=== PATIENT | female | born 1955 | race Native Hawaiian/Other Pacific Islander ===

== ENCOUNTER 2017-09-15 13:21 | Emergency (ER) | payer MEDICAID ==
[2017-09-15 14:45] LABS: Basophils % (Auto) 0.5 % (0.0-1.8); Eosinophils # (Auto) 0.1 K/mm3 (0.0-0.4); Eosinophils % (Auto) 1.2 % (0.0-4.3); Hemoglobin 14.9 gm/dl (10.1-14.3); Lymphocytes # (Auto) 1.6 K/mm3 (1.2-5.4); Lymphocytes % (Auto) 31.8 % (13.4-35.0); Mean Corpuscular HGB Conc 34 % (30-34); Mean Corpuscular Hemoglobin 30 pg (28-32); Mean Corpuscular Volume 88 fl (79-97); Monocytes # (Auto) 0.8 K/mm3 (0.0-0.8); Monocytes % (Auto) 15.6 % (0.0-7.3); Platelet Count 187 K/mm3 (140-440); Red Blood Count 5.02 M/mm3 (3.65-5.03); Red Cell Distribution Width 14.1 % (13.2-15.2)
[2017-09-15 14:59] LABS: Alanine Aminotransferase 125 units/L (7-56); Albumin 4.1 g/dL (3.9-5); BUN/Creatinine Ratio 11; Blood Urea Nitrogen 10 mg/dL (7-17); Calcium 8.9 mg/dL (8.4-10.2); Hemolysis Index 5
[2017-09-15] MEDS ORDERED: NORCO 5/325 PO ONE (16:08)
[2017-09-15] MEDS ORDERED: ZOFRAN ODT PO ONE (16:08)
--- NOTE | 2017-09-15 16:10 | Emergency Department Report ---
ED Abdominal Pain HPI - General Chief Complaint: Abdominal Pain Stated Complaint: LEFT SIDE ABD PAIN Time Seen by Provider: 09/15/17 15:54 Source: patient Mode of arrival: Ambulatory Limitations: No Limitations - History of Present Illness Initial Comments: Ms. Garcia is a pleasant healthy 62-year-old female with history of hypertension. She's had fever left-sided abdominal pain since Thursday for the past 3 days. She has decreased appetite. No dysuria normal bowel movement. No hematochezia. She has body aches. Left lower quadrant pain is described as crampy without radiation. Intermittent. After bowel movement she feels worsening pain. Patient states she felt like she has the flu. - Related Data Previous Rx's Medication Instructions Recorded Last Taken Type Amoxicillin/K Clav Tab [Augmentin 1 tab PO Q12HR #14 tab 11/07/15 Unknown Rx 875 mg] Fluticasone [Flonase] 1 spray NS QDAY #1 bottle 11/07/15 Unknown Rx Ibuprofen [Motrin 800 MG tab] 800 mg PO Q8HR PRN #30 tablet 11/07/15 Unknown Rx guaiFENesin/CODEINE [Robitussin AC] 5 ml PO Q6HR PRN #120 oral.liqd 11/07/15 Unknown Rx Allergies Allergy/AdvReac Type Severity Reaction Status Date / Time No Known Allergies Allergy Verified 11/07/15 14:36 ED Review of Systems ROS: Stated complaint: LEFT SIDE ABD PAIN Other details as noted in HPI Comment: All other systems reviewed and negative Constitutional: chills, fever, malaise ENT: denies: ear pain, throat pain Respiratory: denies: cough Cardiovascular: denies: chest pain Gastrointestinal: abdominal pain. denies: nausea, vomiting, hematemesis ED Past Medical Hx - Past Medical History Hx Hypertension: Yes - Surgical History Additional Surgical History: breast reduction, c-sect, left foot - Social History Smoking Status: Never Smoker Substance Use Type: None - Medications Home Medications: Home Medications Medication Instructions Recorded Confirmed Last Taken Type Amoxicillin/K Clav Tab [Augmentin 1 tab PO Q12HR #14 tab 11/07/15 Unknown Rx 875 mg] Fluticasone [Flonase] 1 spray NS QDAY #1 bottle 11/07/15 Unknown Rx Ibuprofen [Motrin 800 MG tab] 800 mg PO Q8HR PRN #30 tablet 11/07/15 Unknown Rx guaiFENesin/CODEINE [Robitussin AC] 5 ml PO Q6HR PRN #120 oral.liqd 11/07/15 Unknown Rx ED Physical Exam - General Limitations: No Limitations General appearance: alert, in no apparent distress - Head Head exam: Present: atraumatic, normocephalic - Eye Eye exam: Present: normal appearance - ENT ENT exam: Present: mucous membranes moist - Neck Neck exam: Present: normal inspection - Respiratory Respiratory exam: Present: normal lung sounds bilaterally. Absent: respiratory distress, wheezes, rales, rhonchi - Cardiovascular Cardiovascular Exam: Present: regular rate, normal rhythm, normal heart sounds. Absent: systolic murmur, diastolic murmur, rubs, gallop - GI/Abdominal GI/Abdominal exam: Present: soft, normal bowel sounds. Absent: distended, tenderness, guarding, rebound - Extremities Exam Extremities exam: Present: normal inspection - Back Exam Back exam: Present: normal inspection - Neurological Exam Neurological exam: Present: alert, oriented X3 - Psychiatric Psychiatric exam: Present: normal affect, normal mood - Skin Skin exam: Present: warm, dry, intact, normal color. Absent: rash ED Course Vital Signs 09/15/17 14:12 Temperature 98.5 F Pulse Rate 89 Respiratory 16 Rate Blood Pressure 117/76 O2 Sat by Pulse 98 Oximetry ED Medical Decision Making - Lab Data Result diagrams: 09/15/17 14:24 09/15/17 14:24 Laboratory Results - last 24 hr 09/15/17 09/15/17 09/15/17 14:24 14:24 Unknown WBC 4.9 RBC 5.02 Hgb 14.9 H Hct 44.0 H MCV 88 MCH 30 MCHC 34 RDW 14.1 Plt Count 187 Lymph % (Auto) 31.8 [place] % (Auto) 15.6 H Eos % (Auto) 1.2 Baso % (Auto) 0.5 Lymph # 1.6 [place] # 0.8 Eos # 0.1 Baso # 0.0 Seg Neutrophils % 50.9 Seg Neutrophils # 2.5 Sodium 136 L Potassium 4.3 Chloride 100.2 Carbon Dioxide 24 Anion Gap 16 BUN 10 Creatinine 0.9 Estimated GFR > 60 BUN/Creatinine Ratio 11 Glucose 100 Calcium 8.9 Total Bilirubin 0.30 AST 68 H ALT 125 H Alkaline Phosphatase 155 H Total Protein 7.3 Albumin 4.1 Albumin/Globulin Ratio 1.3 Urine Color [place] Urine Turbidity Clear Urine pH 5.0 Ur Specific [place] 1.028 Urine Protein 30 mg/dl Urine Glucose (UA) Neg Urine Ketones Tr Urine Blood Neg Urine Nitrite Neg Urine Bilirubin Neg Urine Urobilinogen < 2.0 Ur Leukocyte Esterase Neg Urine WBC (Auto) 1.0 Urine RBC (Auto) 3.0 U Epithel Cells (Auto) < 1.0 Urine Mucus 3+ - Medical Decision Making Ms. Garcia has left side pain and flu like symptoms. Clinical diagnosis: influenza given reassurance Son notified of elevated liver enzymes. He understands need for followup. Critical care attestation.: If time is entered above; I have spent that time in minutes in the direct care of this critically ill patient, excluding procedure time. ED Disposition Clinical Impression: Influenza, Elevated liver enzymes Disposition: - TO HOME OR SELFCARE Is pt being admited?: No Does the pt Need Aspirin: No Condition: Stable Instructions: Abdominal Pain (ED), Influenza (ED) Additional Instructions: Your liver numbers are elevated. Please see your doctor for further tests. Referrals: LORENZO MEDINA MD [Staff Physician] - 3-5 Days Time of Disposition: 18:29 Print Language: OMANI
[2017-09-15 16:15] LABS: Bilirubin,Urine NEG (Negative); Blood,Urine NEG (Negative); Color,Urine Amber (Yellow); Mucus,Urine 3+ /HPF; Urobilinogen,Urine < 2.0 mg/dL (<2.0)
--- NOTE | 2017-09-15 18:02 | Cat Scan Report ---
FINAL REPORT EXAM: CT ABDOMEN PELVIS WO CON HISTORY: LLQ pain fever TECHNIQUE: Standard unenhanced CT of the abdomen and pelvis. Coronal and sagittal reconstruction was also performed. PRIORS: None. FINDINGS: Within the abdomen, the liver, spleen, pancreas, gallbladder, adrenal glands, and right kidney are unremarkable. There 2 tiny adjacent nonobstructing calculi in the upper pole left kidney measuring 1 mm and 3 mm, respectively. No evidence for hydronephrosis or ureteral calculi bilaterally is seen. No evidence for retroperitoneal or pelvic lymphadenopathy is seen. The bowel loops have normal caliber. No soft tissue mass, fluid collection, inflammatory change, or free air is seen within the abdomen or pelvis. The appendix is normal. There is subtle haziness surrounding the small subcentimeter normal sized lymph nodes within the mesentery (axial images 85-93). Findings may be consistent with a mild reactive mesenteritis to the left of midline. Within the pelvis, the bladder is unremarkable. The uterus is normal. No evidence for mass or lymphadenopathy is seen in the pelvis. Images through the upper abdomen include the lung bases which are expanded and clear. Bony structures show no focal abnormalities and are intact. IMPRESSION: 1. Subtle haziness surrounding normal sized lymph nodes in the mesentery. Findings are nonspecific but can be seen with a mild reactive mesenteritis. 2. Nonobstructing calculi in the upper pole left kidney.
[2017-09-15 18:49] VITALS: BP 118/74
[2017-09-15] MEDS ORDERED: NACL 0.9% 1000 ML 2,000 ML ONE (21:41)
[2017-09-15] MEDS ORDERED: NACL 0.9% 1000 ML 1,000 ML ONE (22:15)
== END 2017-09-15 18:39 | disposition home or self-care (01) ==
LOC: ED 13:21
DX: R74.8 Abnormal levels of other serum enzymes (principal); R10.32 Left lower quadrant pain; J11.1 Influenza due to unidentified influenza virus with other respiratory manifestations; I10 Essential (primary) hypertension
CPT/HCPCS: 36415; 74176; 80053; 81001; 85025; 99284; J7030; Q0162

== ENCOUNTER 2018-02-13 16:03 | Emergency (ER) | payer MEDICAID ==
[2018-02-13 16:19] VITALS: BP 124/79
--- NOTE | 2018-02-13 16:51 | Emergency Department Report ---
ED Dizziness HPI - General Chief Complaint: Dizziness Stated Complaint: DIZZINESS Time Seen by Provider: 02/13/18 16:43 Source: patient, family, EMS Mode of arrival: Stretcher Limitations: No Limitations, Language Barrier - History of Present Illness Initial Comments: 62-year-old woman came dizzy and lightheaded while walking upstairs briefly shortly prior to arrival, experiencing significant lightheadedness, with darkening of vision. She made her way down the stairs, sat on the sofa, did not feel that she passed out completely, but remained weak for several minutes. She did not fall, did not pass out, she had no focal neurologic symptoms, but family contacted EMS for her symptoms. Patient was improving steadily after that, and since then all symptoms have essentially resolved, however family is concerned about the episode, as she is not experiencing such before. She has no prior history of previous episodes, she has no known cardiac history , has not been ill recently, no nausea or vomiting, and has been hydrating normally. She has not been significantly exertional. - Related Data Previous Rx's Medication Instructions Recorded Last Taken Type Amoxicillin/K Clav Tab [Augmentin 1 tab PO Q12HR #14 tab 11/07/15 Unknown Rx 875 mg] Fluticasone [Flonase] 1 spray NS QDAY #1 bottle 11/07/15 Unknown Rx Ibuprofen [Motrin 800 MG tab] 800 mg PO Q8HR PRN #30 tablet 11/07/15 Unknown Rx guaiFENesin/CODEINE [Robitussin AC] 5 ml PO Q6HR PRN #120 oral.liqd 11/07/15 Unknown Rx Allergies Allergy/AdvReac Type Severity Reaction Status Date / Time No Known Allergies Allergy Verified 11/07/15 14:36 ED Review of Systems ROS: Stated complaint: DIZZINESS Other details as noted in HPI Comment: All other systems reviewed and negative Constitutional: no symptoms reported ENT: denies: ear pain, throat pain Respiratory: denies: cough, shortness of breath, wheezing Cardiovascular: denies: chest pain, palpitations Endocrine: no symptoms reported Gastrointestinal: denies: abdominal pain, nausea, diarrhea Musculoskeletal: denies: back pain, joint swelling, arthralgia Skin: denies: rash, lesions Neurological: as per HPI. denies: headache Psychiatric: denies: anxiety, depression ED Past Medical Hx - Past Medical History Hx Hypertension: Yes - Surgical History Additional Surgical History: breast reduction, c-sect, left foot - Social History Smoking Status: Never Smoker Substance Use Type: None - Medications Home Medications: Home Medications Medication Instructions Recorded Confirmed Last Taken Type Amoxicillin/K Clav Tab [Augmentin 1 tab PO Q12HR #14 tab 11/07/15 Unknown Rx 875 mg] Fluticasone [Flonase] 1 spray NS QDAY #1 bottle 11/07/15 Unknown Rx Ibuprofen [Motrin 800 MG tab] 800 mg PO Q8HR PRN #30 tablet 11/07/15 Unknown Rx guaiFENesin/CODEINE [Robitussin AC] 5 ml PO Q6HR PRN #120 oral.liqd 11/07/15 Unknown Rx ED Physical Exam - General Limitations: No Limitations, Language Barrier General appearance: alert, in no apparent distress - Head Head exam: Present: atraumatic, normocephalic - Eye Eye exam: Present: PERRL - ENT ENT exam: Present: normal exam, mucous membranes moist - Neck Neck exam: Present: normal inspection, full ROM. Absent: tenderness - Respiratory Respiratory exam: Present: normal lung sounds bilaterally. Absent: respiratory distress, wheezes, rales, rhonchi, chest wall tenderness - Cardiovascular Cardiovascular Exam: Present: regular rate, normal rhythm, normal heart sounds. Absent: systolic murmur, diastolic murmur, rubs, gallop - GI/Abdominal GI/Abdominal exam: Present: soft, normal bowel sounds. Absent: tenderness, guarding, rebound - Rectal Rectal exam: Present: deferred - Extremities Exam Extremities exam: Present: normal inspection - Back Exam Back exam: Present: normal inspection - Neurological Exam Neurological exam: Present: alert, oriented X3, CN II-XII intact. Absent: motor sensory deficit - Psychiatric Psychiatric exam: Present: normal affect, normal mood - Skin Skin exam: Present: warm, dry, intact, normal color. Absent: rash ED Course Vital Signs 02/13/18 16:11 Temperature 36.7 C Pulse Rate 86 Blood Pressure 124/79 O2 Sat by Pulse 98 Oximetry - Reevaluation(s) Reevaluation #1: 02/13/18 18:30 Patient is stable on recheck, asymptomatic, check for signs of orthostasis, and on sitting up, remained stable, has only transient lightheadedness lasting less than 10 seconds, and repeat blood pressure is 133/94, heart rate unchanged. ED Medical Decision Making - Lab Data Result diagrams: 02/13/18 16:48 02/13/18 16:48 - EKG Data -: EKG Interpreted by Me (normal EKG, normal sinus rhythm,) EKG shows normal: sinus rhythm (85 bpm), intervals (QT interval normal at 447 ms ), QRS complexes (normal QRS complex, normal axis at 72), ST-T waves Rate: normal - EKG Data When compared to previous EKG there are: previous EKG unavailable - Medical Decision Making Patient has typical findings of a vasovagal reaction, with no abnormalities on cardiac monitoring, normal EKG, normal electrolytes without signs of electrolyte abnormality or anemia. Family reassured, recommended to rest over the next day or so, drink plenty of fluids, but if there are multiple recurrences, to return for recheck. - Differential Diagnosis vasovagal reaction, dehydration, anemia, cardiac syncope Critical care attestation.: If time is entered above; I have spent that time in minutes in the direct care of this critically ill patient, excluding procedure time. ED Disposition Clinical Impression: Vasovagal reaction Disposition: - TO HOME OR SELFCARE Is pt being admited?: No Does the pt Need Aspirin: No Condition: Stable Instructions: Syncope (ED) Additional Instructions: Evaluation today is stable, with no abnormality seen on electrocardiogram, heart monitoring, blood pressure is stable, and laboratory blood work is also normal. Rest at home, symptoms should resolve and did not recur. Drink plenty of fluids, and avoid exertion over the next day or so. If you have of other episode, lay down flat, rest, as most symptoms should resolve within a few minutes. Symptoms do not resolve within a few minutes, or if you have multiple recurrent episodes, return to the emergency department for further evaluation. Referrals: PRIMARY CARE, [Primary Care Provider] - 3-5 Days Time of Disposition: 18:34
[2018-02-13 17:02] LABS: Basophils % (Auto) 0.6 % (0.0-1.8); Eosinophils # (Auto) 0.1 K/mm3 (0.0-0.4); Eosinophils % (Auto) 1.3 % (0.0-4.3); Hematocrit 41.7 % (30.3-42.9); Lymphocytes # (Auto) 1.2 K/mm3 (1.2-5.4); Lymphocytes % (Auto) 20.6 % (13.4-35.0); Mean Corpuscular HGB Conc 34 % (30-34); Mean Corpuscular Hemoglobin 30 pg (28-32); Mean Corpuscular Volume 89 fl (79-97); Monocytes # (Auto) 0.4 K/mm3 (0.0-0.8); Monocytes % (Auto) 6.9 % (0.0-7.3); Platelet Count 215 K/mm3 (140-440); Red Blood Count 4.67 M/mm3 (3.65-5.03); Red Cell Distribution Width 13.7 % (13.2-15.2)
[2018-02-13 17:17] LABS: BUN/Creatinine Ratio 16; Blood Urea Nitrogen 14 mg/dL (7-17); Calcium 9.3 mg/dL (8.4-10.2); Hemolysis Index 11
== END 2018-02-13 19:40 | disposition home or self-care (01) ==
LOC: ED 16:03
DX: R55 Syncope and collapse (principal); I10 Essential (primary) hypertension
CPT/HCPCS: 36415; 80048; 85025; 93005; 93010; 99283

== ENCOUNTER 2019-08-16 03:14 | Emergency (ER) | payer MEDICAID ==
[2019-08-16] MEDS ORDERED: TETANUS,DIPH,PERTUSS(ACELL) VACCINE 0.5 ML SYRINGE IM ONE (03:34)
[2019-08-16 04:07] LABS: Basophils % (Auto) 0.7 % (0.0-1.8); Eosinophils # (Auto) 0.1 K/mm3 (0.0-0.4); Eosinophils % (Auto) 1.8 % (0.0-4.3); Hematocrit 41.5 % (30.3-42.9); Hemoglobin 13.9 gm/dl (10.1-14.3); Lymphocytes # (Auto) 2.5 K/mm3 (1.2-5.4); Lymphocytes % (Auto) 39.3 % (13.4-35.0); Mean Corpuscular HGB Conc 34 % (30-34); Mean Corpuscular Volume 89 fl (79-97); Monocytes # (Auto) 0.5 K/mm3 (0.0-0.8); Monocytes % (Auto) 7.8 % (0.0-7.3); Platelet Count 248 K/mm3 (140-440); Red Blood Count 4.67 M/mm3 (3.65-5.03)
[2019-08-16 04:15] LABS: Bilirubin,Urine NEG (Negative); Blood,Urine NEG (Negative); Color,Urine Colorless (Yellow); Protein,Urine <15 mg/dL mg/dL (Negative); Urobilinogen,Urine < 2.0 mg/dL (<2.0)
[2019-08-16 04:29] LABS: Alanine Aminotransferase 40 units/L (7-56); Albumin 4.5 g/dL (3.9-5); BUN/Creatinine Ratio 13; Blood Urea Nitrogen 10 mg/dL (7-17); Calcium 9.7 mg/dL (8.4-10.2); Hemolysis Index 10
[2019-08-16] MEDS ORDERED: SODIUM CHLORIDE 0.9% 1000 ML 1,000 ML IV ONE (04:47)
[2019-08-16] MEDS ORDERED: ONDANSETRON 4 MG/2 ML INJ IV ONE (04:47)
--- NOTE | 2019-08-16 05:51 | Cat Scan Report ---
CT ABDOMEN AND PELVIS WITH IV CONTRAST INDICATION: abd pain. COMPARISON: CT 09/15/2017 TECHNIQUE: All CT scans at this facility use dose modulation, automated exposure control, iterative reconstructi on or weight based dosing, when appropriate, to reduce radiation dose to as low as reasonably achieva ble. FINDINGS: Lung Bases: No significant abnormality. Skeletal System: No acute abnormality. ABDOMEN: Liver: No significant abnormality. Gallbladder: No significant abnormality. Bile Ducts: No significant abnormality. Pancreas: No significant abnormality. Spleen: No significant abnormality. Adrenals: No significant abnormality. Right Kidney: No significant abnormality. Left Kidney: Minimal nephrolithiasis. No hydronephrosis. Upper GI tract: No significant abnormality. Lymph Nodes: No significant adenopathy. Aorta: No significant abnormality. Additional Findings: Shotty mesenteric nodes are stable. PELVIS: Colon: No acute abnormality. Diverticulosis is noted. Urinary Bladder and Distal Ureters: No significant abnormality. Appendix: No significant abnormality. Lymph Nodes: No significant adenopathy. Additional Findings: None. IMPRESSION: 1. No acute process in the abdomen or pelvis. 2. Incidental findings, as above. Signer Name: Javy Villanueva MD Signed: 08/16/2019 5:47 AM Workstation Name: [id number]
--- NOTE | 2019-08-16 05:53 | Emergency Department Report ---
ED Abdominal Pain HPI - General Chief Complaint: Abdominal Pain Stated Complaint: THROAT PAIN BLURRED VISION Time Seen by Provider: 08/16/19 04:45 Source: patient, family Mode of arrival: Ambulatory Limitations: No Limitations - History of Present Illness Initial Comments: Ms. Garcia is a 62-year-old female with history of hypertension, GERD, and tummy tuck procedure. She's had abdominal pain and esophageal burning and indigestion for the past 3 days. She states nausea no vomiting and decreased appetite. There is no dysuria ,but frequent constipaiton. No hematochezia. Pain is 5/10 cramping, radiating to left lower quadrant. pain is described as crampy without radiation occurrance is Intermittent. pain is improved with MD KIRTI Complaint: abdominal pain, other (constipation) Onset/Timin -: days(s) Location: LLQ, RLQ Radiation: LLQ, RLQ Migration to: LLQ Severity: moderate Severity scale (0 -10): 5 Quality: cramping Consistency: intermittent Improves With: bowel movement Worsens With: movement Associated Symptoms: nausea, constipation. denies: vomiting, diarrhea, fever, chills, dysuria, hematemesis, hematochezia, melena - Related Data Previous Rx's Medication Instructions Recorded Last Taken Type Amoxicillin/K Clav Tab [Augmentin 1 tab PO Q12HR #14 tab 11/07/15 Unknown Rx 875 mg] Fluticasone [Flonase] 1 spray NS QDAY #1 bottle 11/07/15 Unknown Rx Ibuprofen [Motrin 800 MG tab] 800 mg PO Q8HR PRN #30 tablet 11/07/15 Unknown Rx guaiFENesin/CODEINE [Robitussin AC] 5 ml PO Q6HR PRN #120 oral.liqd 11/07/15 Unknown Rx Famotidine [Pepcid] 20 mg PO BID #30 tablet 08/16/19 Unknown Rx Naproxen 500 mg PO BID PRN #30 tablet 08/16/19 Unknown Rx cephALEXin [Keflex] 500 mg PO BID 3 Days #6 cap 08/16/19 Unknown Rx Allergies Allergy/AdvReac Type Severity Reaction Status Date / Time No Known Allergies Allergy Verified 11/07/15 14:36 ED Review of Systems ROS: Stated complaint: THROAT PAIN BLURRED VISION Other details as noted in HPI Constitutional: denies: chills, fever Eyes: as per HPI ENT: denies: ear pain, throat pain Respiratory: denies: cough, shortness of breath, wheezing Cardiovascular: denies: chest pain, palpitations Endocrine: no symptoms reported Gastrointestinal: abdominal pain, nausea, constipation. denies: vomiting, diarrhea, melena Genitourinary: denies: urgency, dysuria, frequency, hematuria, discharge Musculoskeletal: denies: back pain, joint swelling, arthralgia Skin: denies: rash, lesions Neurological: denies: headache, weakness, paresthesias Psychiatric: denies: anxiety, depression Hematological/Lymphatic: denies: easy bleeding, easy bruising ED Past Medical Hx - Past Medical History Previous Medical History?: Yes Hx Hypertension: Yes - Surgical History Past Surgical History?: Yes Hx Breast Surgery: Yes (r) Additional Surgical History: breast reduction, c-sect, left foot - Social History Smoking Status: Never Smoker Substance Use Type: None - Medications Home Medications: Home Medications Medication Instructions Recorded Confirmed Last Taken Type Amoxicillin/K Clav Tab [Augmentin 1 tab PO Q12HR #14 tab 11/07/15 Unknown Rx 875 mg] Fluticasone [Flonase] 1 spray NS QDAY #1 bottle 11/07/15 Unknown Rx Ibuprofen [Motrin 800 MG tab] 800 mg PO Q8HR PRN #30 tablet 11/07/15 Unknown Rx guaiFENesin/CODEINE [Robitussin AC] 5 ml PO Q6HR PRN #120 oral.liqd 11/07/15 Unknown Rx Famotidine [Pepcid] 20 mg PO BID #30 tablet 08/16/19 Unknown Rx Naproxen 500 mg PO BID PRN #30 tablet 08/16/19 Unknown Rx cephALEXin [Keflex] 500 mg PO BID 3 Days #6 cap 08/16/19 Unknown Rx ED Physical Exam - General Limitations: No Limitations General appearance: alert, in no apparent distress - Head Head exam: Present: atraumatic, normocephalic - Eye Eye exam: Present: normal appearance, PERRL, EOMI Pupils: Present: normal accommodation - ENT ENT exam: Present: mucous membranes moist - Neck Neck exam: Present: normal inspection - Respiratory Respiratory exam: Present: normal lung sounds bilaterally. Absent: respiratory distress, wheezes, stridor, chest wall tenderness - Cardiovascular Cardiovascular Exam: Present: regular rate, normal rhythm, normal heart sounds. Absent: systolic murmur, diastolic murmur, rubs, gallop - GI/Abdominal GI/Abdominal exam: Present: normal bowel sounds. Absent: distended, tenderness (bilat lower Quads), guarding, rebound, rigid, bruit, hernia - Rectal Rectal exam: Present: deferred - Extremities Exam Extremities exam: Present: normal inspection, full ROM, normal capillary refill. Absent: tenderness, pedal edema - Back Exam Back exam: Present: normal inspection, full ROM. Absent: tenderness, CVA tenderness (R), CVA tenderness (L) - Neurological Exam Neurological exam: Present: alert, oriented X3, CN II-XII intact, normal gait - Psychiatric Psychiatric exam: Present: normal affect, normal mood - Skin Skin exam: Present: warm, dry, intact, normal color. Absent: rash ED Course Vital Signs 08/16/19 03:18 Temperature 98.2 F Pulse Rate 87 Respiratory 18 Rate Blood Pressure 152/85 O2 Sat by Pulse 98 Oximetry ED Medical Decision Making - Lab Data Result diagrams: 08/16/19 03:53 08/16/19 03:53 Labs 08/16/19 08/16/19 08/16/19 03:47 03:53 03:53 WBC 6.3 RBC 4.67 Hgb 13.9 Hct 41.5 MCV 89 MCH 30 MCHC 34 RDW 13.0 L Plt Count 248 Lymph % (Auto) 39.3 H [place] % (Auto) 7.8 H Eos % (Auto) 1.8 Baso % (Auto) 0.7 Lymph # 2.5 [place] # 0.5 Eos # 0.1 Baso # 0.0 Seg Neutrophils % 50.4 Seg Neutrophils # 3.2 Sodium 144 Potassium 4.3 Chloride 106.0 Carbon Dioxide 23 Anion Gap 19 BUN 10 Creatinine 0.8 Estimated GFR > 60 BUN/Creatinine Ratio 13 Glucose 108 H Calcium 9.7 Total Bilirubin 0.20 AST 25 ALT 40 Alkaline Phosphatase 157 H Total Protein 7.1 Albumin 4.5 Albumin/Globulin Ratio 1.7 Urine Color Colorless Urine Turbidity Clear Urine pH 8.0 H Ur Specific [place] 1.002 L Urine Protein <15 mg/dl Urine Glucose (UA) Neg Urine Ketones Neg Urine Blood Neg Urine Nitrite Neg Urine Bilirubin Neg Urine Urobilinogen < 2.0 Ur Leukocyte Esterase Sm Urine WBC (Auto) 1.0 Urine RBC (Auto) 1.0 - Radiology Data Radiology results: report reviewed, image reviewed Findings Reporting MD: Javy Villanueva Dictation Time: August 16, 2019 04:47 Tableau Developer: Not available Electrophysiology Technician Date: CT ABDOMEN AND PELVIS WITH IV CONTRAST INDICATION: abd pain. COMPARISON: CT 09/15/2017 TECHNIQUE: All CT scans at this facility use dose modulation, automated exposure control, iterative reconstruction or weight based dosing, when appropriate, to reduce radiation dose to as low as reasonably achievable. FINDINGS: Lung Bases: No significant abnormality. Skeletal System: No acute abnormality. ABDOMEN: Liver: No significant abnormality. Gallbladder: No significant abnormality. Bile Ducts: No significant abnormality. Pancreas: No significant abnormality. Spleen: No significant abnormality. Adrenals: No significant abnormality. Right Kidney: No significant abnormality. Left Kidney: Minimal nephrolithiasis. No hydronephrosis. Upper GI tract: No significant abnormality. Lymph Nodes: No significant adenopathy. Aorta: No significant abnormality. Additional Findings: Shotty mesenteric nodes are stable. PELVIS: Colon: No acute abnormality. Diverticulosis is noted. Urinary Bladder and Distal Ureters: No significant abnormality. Appendix: No significant abnormality. Lymph Nodes: No significant adenopathy. Additional Findings: None. IMPRESSION: 1. No acute process in the abdomen or pelvis. 2. Incidental findings, as above. - Medical Decision Making CT abdomen and pelvis no change from 2018, minimally small nephrolithiasis, UA small leukocytes, patient has history of GERD symptoms are improved with GI cocktail. No gross stool in bowels on CT. plan PPI, Colace. Hydrate, Keflex for 3 days for minimal UTI. Patient will follow-up with primary care in 2 to 3 days . Patient verbalizes agreement and understanding with discharge plan. She has appointment on Thursday with PCP. Patient will be DC'd home in stable condition at this time Critical care attestation.: If time is entered above; I have spent that time in minutes in the direct care of this critically ill patient, excluding procedure time. ED Disposition Clinical Impression: Nonspecific abdominal pain GERD (gastroesophageal reflux disease) Qualifiers: Esophagitis presence: without esophagitis Qualified Code(s): K21.9 - Gastro- esophageal reflux disease without esophagitis Disposition: DC-01 TO HOME OR SELFCARE Is pt being admited?: No Does the pt Need Aspirin: No Condition: Stable Instructions: Abdominal Pain (ED), Gastroesophageal Reflux Disease (ED) Prescriptions: cephALEXin [Keflex] 500 mg PO BID 3 Days #6 cap Naproxen 500 mg PO BID PRN #30 tablet PRN Reason: pain Famotidine [Pepcid] 20 mg PO BID #30 tablet Referrals: [facility] [Provider Group] - 3-5 Days LORENZO MEDINA MD [Staff Physician] - 3-5 Days Forms: Work/School Release Form(ED) Time of Disposition: 06:27
[2019-08-16] MEDS ORDERED: LIDOCAINE VISCOUS 2% 15 ML ORAL LIQD PO ONE (05:58)
[2019-08-16] MEDS ORDERED: ALUM-MAG HYDROXIDE-SIMETHICONE 200-200-20MG/5ML ORAL LIQD 30 ML PO ONE (05:58)
[2019-08-16 06:38] VITALS: BP 132/87
== END 2019-08-16 06:35 | disposition home or self-care (01) ==
LOC: ED 03:14
DX: K21.9 Gastro-esophageal reflux disease without esophagitis (principal); I10 Essential (primary) hypertension; Z98.890 Other specified postprocedural states; Z79.899 Other long term (current) drug therapy
CPT/HCPCS: 36415; 74177; 80053; 81001; 85025; 96374; 99284; J2405; J7030; Q9967; 90715

== ENCOUNTER 2020-03-21 02:31 | Emergency (ER) | payer MEDICAID ==
[2020-03-21 04:49] LABS: Basophils % (Auto) 0.5 % (0.0-1.8); Eosinophils # (Auto) 0.1 K/mm3 (0.0-0.4); Eosinophils % (Auto) 1.8 % (0.0-4.3); Hematocrit 45.1 % (30.3-42.9); Hemoglobin 14.9 gm/dl (10.1-14.3); Lymphocytes # (Auto) 1.6 K/mm3 (1.2-5.4); Lymphocytes % (Auto) 29.5 % (13.4-35.0); Mean Corpuscular HGB Conc 33 % (30-34); Mean Corpuscular Volume 92 fl (79-97); Monocytes # (Auto) 0.5 K/mm3 (0.0-0.8); Monocytes % (Auto) 9.8 % (0.0-7.3); Platelet Count 234 K/mm3 (140-440); Red Cell Distribution Width 13.6 % (13.2-15.2)
[2020-03-21 05:12] LABS: Alanine Aminotransferase 50 units/L (7-56); Albumin 4.5 g/dL (3.9-5); Blood Urea Nitrogen 13 mg/dL (7-17); Calcium 9.6 mg/dL (8.4-10.2); Hemolysis Index 45
[2020-03-21 05:25] LABS: BUN/Creatinine Ratio 19
[2020-03-21 07:38] VITALS: BP 139/91
== END 2020-03-21 12:50 | disposition left against medical advice (07) ==
LOC: ED 02:31
DX: R06.00 Dyspnea, unspecified (principal); R20.2 Paresthesia of skin; R25.2 Cramp and spasm; I10 Essential (primary) hypertension; Z53.21 Procedure and treatment not carried out due to patient leaving prior to being seen by health care provider
CPT/HCPCS: 36415; 80053; 85025; 93005